=== PATIENT | female | born 1970 | race African-American/Black ===

== ENCOUNTER 2018-03-28 13:32 | Emergency (ER) | payer BC ==
[~2018-03-28] VITALS: Ht 167.6 cm; Wt 85.7 kg
[2018-03-28] MEDS ORDERED: MOBIC7.5 MG PO (14:28)
[2018-03-28 14:51] VITALS: BP 145/100
== END 2018-03-28 14:52 | disposition home or self-care (01) ==
LOC: ER 13:32
DX: M25.561 Pain in right knee (principal); Z88.5 Allergy status to narcotic agent

== ENCOUNTER 2020-10-16 10:51 | Emergency (ER) | payer OTHER ==
[~2020-10-16] VITALS: Ht 170.2 cm; Wt 95.3 kg
[~2020-10-16 10:51] MED LIST: MOBIC7.5 MG PO
[2020-10-16] MEDS ORDERED: ZOFRAN ODT4 MG PO (12:02)
[2020-10-16] MEDS ORDERED: MECLIZINE HCL25 M1 PO (12:02)
[2020-10-16] MEDS ORDERED: AMOXICILLIN875 MG PO (12:02)
[2020-10-16 12:47] VITALS: BP 151/91
--- NOTE | 2020-10-16 16:18 | EKG ---
[place] [address] [facility] [place] [address] ELECTROCARDIOGRAM REPORT Name: CAROLYN PARRA [id number] Admission: 10/16/20 Attend Phys: Discharge: 10/16/20 Date of : 66 Report #: [id number] [facility] ED Test Date: 2020-10-16 Test Time: 11:30:58 Pat Name: CAROLYN PARRA Department: Room: Gender: Nylon Operator: : 1970 Requested By: Jad Griggs Order Number: [id number] MD: Tello Duncan Measurements Intervals Stewart Rate: 83 P: 42 NV: 154 QRS: -17 QRSD: 90 T: 11 QT: 370 QTc: 435 Interpretive Statements Sinus rhythm Poor R wave progression No previous ECG available for comparison Electronically Signed On 10-16-2020 16:18:31 CDT by Tello Duncan [email or web address] <ELECTRONICALLY SIGNED> By: Tello Duncan MD, [facility] 10/16/20 1618 1130 1130 Tello Duncan MD, FACC /EPI
== END 2020-10-16 12:47 | disposition home or self-care (01) ==
LOC: ER 10:51
DX: H66.92 Otitis media, unspecified, left ear (principal); H81.12 Benign paroxysmal vertigo, left ear; Z88.5 Allergy status to narcotic agent